=== PATIENT | male | born 1970 | race African-American/Black ===

== ENCOUNTER 2022-11-03 14:38 | Emergency (ER) | payer OTHER ==
[2022-11-03 14:52] VITALS: RESP 16; TEMP 97.5
--- NOTE | 2022-11-03 15:36 | ED ---
Psych HPI - General Source: patient, RN notes reviewed, old records reviewed Mode of arrival: ambulatory - History of Present Illness MD Complaint: suicidal ideation, feels depressed -: year(s) (2) Associated Psychiatric Symptoms: depression, suicidal ideation History of same: Yes Quality: constant, getting worse Improves With: none Context: recent drug abuse (crack yesterday, marijuana), significant life stressor Associated Symptoms: denies other symptoms Treatments Prior to Arrival: none <Jose Mattson - Last Filed: 11/03/22 15:33> <Heber Moura - Last Filed: 11/03/22 17:16> - General Chief Complaint: Psychiatric Symptoms Stated Complaint: DEPRESSION Time Seen by Provider: 11/03/22 15:09 - History of Present Illness Initial Comments: 52-year-old male presents ambulatory with complaints of worsening depression and suicidal ideation without a plan. Patient states he has a history of depression and was hospitalized inpatient in [place] a couple of years ago. At discharge he was placed on Seroquel but has not had that in quite some time. States it did help when he was on it. Does not have a primary care doctor. States that he is living down here by himself. Does have a history of crack cocaine abuse and used yesterday. Also uses marijuana. Denies any alcohol use. Patient denies any medical history. (Jose Mattson) - Related Data Allergies Allergy/AdvReac Type Severity Reaction Status Date / Time No Known Allergies Allergy Verified 11/03/22 14:47 Review of Systems ROS Other: All systems not noted in ROS Statement are negative. <Jose Mattson - Last Filed: 11/03/22 15:33> ROS Other: All systems not noted in ROS Statement are negative. <Heber Moura - Last Filed: 11/03/22 17:16> ROS Statement: Those systems with pertinent positive or pertinent negative responses have been documented in the HPI. Past Medical History Past Medical History: No Reported History History of Any Multi-Drug Resistant Organisms: None Reported Past Surgical History: Hernia Repair Past Psychological History: No Psychological Hx Reported Smoking Status: Current every day smoker Past Alcohol Use History: Heavy Past Drug Use History: Cocaine, Marijuana <Jose Mattson - Last Filed: 11/03/22 15:33> General Exam Limitations: no limitations General appearance: alert, in no apparent distress Head exam: Present: atraumatic, normocephalic Eye exam: Present: other (blind retinal detachment hx right eye). Absent: conjunctival injection Neck exam: Present: full ROM. Absent: tenderness, meningismus Respiratory exam: Present: normal lung sounds bilaterally. Absent: respiratory distress, accessory muscle use Cardiovascular Exam: Present: regular rate Extremities exam: Present: full ROM. Absent: tenderness, pedal edema Neurological exam: Present: alert, oriented X3 Psychiatric exam: Present: depressed, suicidal ideation (no plan) Skin exam: Present: warm, dry, normal color. Absent: cyanosis, diaphoretic, petechiae, pallor <Jose Mattson - Last Filed: 11/03/22 15:33> Course Vital Signs 11/03/22 14:48 Temperature 97.5 F L Pulse Rate 87 Respiratory 16 Rate Blood Pressure 132/79 O2 Sat by Pulse 98 Oximetry Medical Decision Making <Jose Mattson - Last Filed: 11/03/22 15:33> <Heber Moura - Last Filed: 11/03/22 17:16> - Medical Decision Making 52-year-old male presents ambulatory with complaints of worsening depression and suicidal ideation without a plan. Patient states he has a history of depression and was hospitalized inpatient in [place] a couple of years ago. At discharge he was placed on Seroquel but has not had that in quite some time. States it did help when he was on it. Does not have a primary care doctor. States that he is living down here by himself. Does have a history of crack cocaine abuse and used yesterday. Also uses marijuana. Denies any alcohol use. Patient denies any medical history. (Jose Mattson) Was pt. sent in by a medical professional or institution (, PA, DYE RANGE OPERATOR CLOTH, urgent care, hospital, or half-way...) When possible be specific @ -No Did you speak to anyone other than the patient for history (EMS, parent, family, police, friend...)? What history was obtained from this source @ -No Did you review nursing and triage notes (agree or disagree)? Why? @ -I reviewed and agree with nursing and triage notes Were old charts reviewed (outside hosp., previous admission, EMS record, old EKG, old radiological studies, urgent care reports/EKG's, half-way records)? Report findings @ -No old charts were reviewed Differential Diagnosis (chest pain, altered mental status, abdominal pain women, abdominal pain men, vaginal bleeding, weakness, fever, dyspnea, syncope, headache, dizziness, GI bleed, back pain, seizure, CVA, palpatations, mental health, musculoskeletal)? @Differential Mental Health Depression, anxiety, bipolar, psychosis, schizophrenia, borderline personality, situational depression, adjustment disorder, behavioral disorder, brain tumor, malingering, substance abuse, encephalopathy, medication reaction, dementia, hypothyroidism, degenerative neurologic disorder, lupus.... This is not meant to be all-inclusive list EKG interpreted by me (3pts min.). @ -As above X-rays interpreted by me (1pt min.). @ -None done CT interpreted by me (1pt min.). @ -None done U/S interpreted by me (1pt. min.). @ -None done What testing was considered but not performed or refused? (CT, X-rays, U/S, labs)? Why? @ -None What meds were considered but not given or refused? Why? @ -None Did you discuss the management of the patient with other professionals (professionals i.e. , PA, DYE RANGE OPERATOR CLOTH, lab, RT, psych nurse, manager social work, fire sprinkler service technician, teacher, bsa officer, case picker)? Give summary @ - evaluated by EPS, felt to be safe for discharge. Was smoking cessation discussed for >3mins.? @ -No Was critical care preformed (if so, how long)? @ -No Were there social determinants of health that impacted care today? How? (Homelessness, low income, unemployed, alcoholism, drug addiction, transportation, low edu. Level, literacy, decrease access to med. care, prison, rehab)? @ -No Was there de-escalation of care discussed even if they declined (Discuss DNR or withdrawal of care, Hospice)? DNR status @ -No What co-morbidities impacted this encounter? (DM, HTN, Smoking, COPD, CAD, Cancer, CVA, ARF, Chemo, Hep., AIDS, mental health diagnosis, sleep apnea, morbid obesity)? @ -None Was patient admitted / discharged? Hospital course, mention meds given and route, prescriptions, significant lab abnormalities, going to OR and other pertinent info. @ -Patient discharged with plan to follow up with [facility] on Saturday Undiagnosed new problem with uncertain prognosis? @ -No Drug Therapy requiring intensive monitoring for toxicity (Heparin, Nitro, Insulin, Cardizem)? @ -No Were any procedures done? @ -No Diagnosis/symptom? @ Depression, cocaine use Acute, or Chronic, or Acute on Chronic? @ Acute Uncomplicated (without systemic symptoms) or Complicated (systemic symptoms)? @ -default Side effects of treatment? @ -No Exacerbation, Progression, or Severe Exacerbation? @ -No Poses a threat to life or bodily function? How? (Chest pain, [place], [place], pneumonia, PE, COPD, DKA, ARF, appy, cholecystitis, CVA, Diverticulitis, Homicidal, Dionne cidal, threat to staff... and all critical care pts) @ -[Low risk at this time (Heber Moura) Disposition <Jose Mattson - Last Filed: 11/03/22 15:33> Is patient prescribed a controlled substance at d/c from ED?: No Time of Disposition: 17:16 <Heber Moura - Last Filed: 11/03/22 17:16> Clinical Impression: Depression, Cocaine abuse Disposition: HOME SELF-CARE Condition: Fair Instructions (If sedation given, give patient instructions): Depression (ED) Additional Instructions: Please follow up with [facility] on Saturday Referrals: None,Stated [Primary Care Provider] - 1-2 days
[2022-11-03 17:32] VITALS: BP 117/73; PULSE 79
== END 2022-11-03 18:00 | disposition home or self-care (01) ==
LOC: EC 14:38
DX: F32.A Depression, unspecified (principal); F14.10 Cocaine abuse, uncomplicated; F17.200 Nicotine dependence, unspecified, uncomplicated; F12.90 Cannabis use, unspecified, uncomplicated
CPT/HCPCS: 82075; 99284

== ENCOUNTER 2022-12-16 10:17 | Inpatient (IN) | payer MEDICAID, OTHER ==
--- NOTE | 2022-12-16 10:51 | ED ---
General Adult HPI - General Chief complaint: Psychiatric Symptoms Stated complaint: Mental Health Time Seen by Provider: 12/16/22 10:30 Source: patient, RN notes reviewed Mode of arrival: ambulatory Limitations: no limitations - History of Present Illness Initial comments: Patient is a pleasant 52-year-old male presenting to the emergency department with depression. Patient does have some chronic depression, worse recently. Patient has thoughts of self-harm, thoughts of cutting himself. Patient does have a history of previous cutting himself. No new physical complaints. Patient does have history of alcohol and cocaine use several days ago. No new physical complaints. Patient sometimes sees his uncle. - Related Data Allergies Allergy/AdvReac Type Severity Reaction Status Date / Time No Known Allergies Allergy Verified 12/16/22 10:29 Review of Systems ROS Statement: Those systems with pertinent positive or pertinent negative responses have been documented in the HPI. ROS Other: All systems not noted in ROS Statement are negative. Constitutional: Denies: fever Eyes: Denies: eye pain ENT: Denies: ear pain Respiratory: Denies: cough Cardiovascular: Denies: chest pain Endocrine: Denies: fatigue Gastrointestinal: Denies: abdominal pain Psychiatric: Reports: as per HPI, depression, suicidal thoughts Past Medical History Past Medical History: No Reported History History of Any Multi-Drug Resistant Organisms: None Reported Past Surgical History: Hernia Repair Past Psychological History: Depression Smoking Status: Current every day smoker Past Alcohol Use History: Heavy Past Drug Use History: Cocaine, Marijuana General Exam Limitations: no limitations General appearance: alert, in no apparent distress Head exam: Present: normocephalic Eye exam: Present: normal appearance Neck exam: Present: normal inspection Respiratory exam: Present: normal lung sounds bilaterally Cardiovascular Exam: Present: regular rate, normal rhythm GI/Abdominal exam: Present: soft. Absent: tenderness Extremities exam: Present: normal inspection Neurological exam: Present: alert Psychiatric exam: Present: depressed Skin exam: Present: normal color Course Vital Signs 12/16/22 10:26 Temperature 97.8 F Pulse Rate 69 Respiratory 16 Rate Blood Pressure 123/84 O2 Sat by Pulse 99 Oximetry Medical Decision Making - Medical Decision Making Was pt. sent in by a medical professional or institution (, PA, VETERINARIAN ASSISTANT, urgent care, hospital, or correction...) When possible be specific @ -No Did you speak to anyone other than the patient for history (EMS, parent, family, police, friend...)? What history was obtained from this source @ -No Did you review nursing and triage notes (agree or disagree)? Why? @ -I reviewed and agree with nursing and triage notes Were old charts reviewed (outside hosp., previous admission, EMS record, old EKG, old radiological studies, urgent care reports/EKG's, correction records)? Report findings @ -No old charts were reviewed Differential Diagnosis (chest pain, altered mental status, abdominal pain women, abdominal pain men, vaginal bleeding, weakness, fever, dyspnea, syncope, headache, dizziness, GI bleed, back pain, seizure, CVA, palpatations, mental health, musculoskeletal)? @ -Differential Mental Health Depression, anxiety, bipolar, psychosis, schizophrenia, borderline personality, situational depression, adjustment disorder, behavioral disorder, brain tumor, malingering, substance abuse, encephalopathy, medication reaction, dementia, hypothyroidism, degenerative neurologic disorder, lupus.... This is not meant to be all-inclusive list EKG interpreted by me (3pts min.). @ -As above X-rays interpreted by me (1pt min.). @ -None done CT interpreted by me (1pt min.). @ -None done U/S interpreted by me (1pt. min.). @ -None done What testing was considered but not performed or refused? (CT, X-rays, U/S, labs)? Why? @ -None What meds were considered but not given or refused? Why? @ -None Did you discuss the management of the patient with other professionals (professionals i.e. , PA, VETERINARIAN ASSISTANT, lab, RT, psych nurse, forensic social worker, technical sales support specialist, teacher, court officer, ed case manager)? Give summary @ -Case was discussed with psychiatric nurse Alice with plans for mental health admission. Was smoking cessation discussed for >3mins.? @ -No Was critical care preformed (if so, how long)? @ -No Were there social determinants of health that impacted care today? How? (Homelessness, low income, unemployed, alcoholism, drug addiction, transportation, low edu. Level, literacy, decrease access to med. care, halfway, rehab)? @ -No Was there de-escalation of care discussed even if they declined (Discuss DNR or withdrawal of care, Hospice)? DNR status @ -No What co-morbidities impacted this encounter? (DM, HTN, Smoking, COPD, CAD, [place] ncer, CVA, ARF, Chemo, Hep., AIDS, mental health diagnosis, sleep apnea, morbid obesity)? @ -None Was patient admitted / discharged? Hospital course, mention meds given and route, prescriptions, significant lab abnormalities, going to OR and other pertinent info. @ -Patient will be admitted to mental health unit. Patient was medically maranda red earlier. Undiagnosed new problem with uncertain prognosis? @ -No Drug Therapy requiring intensive monitoring for toxicity (Heparin, Nitro, I nsulin, Cardizem)? @ -No Were any procedures done? @ -No Diagnosis/symptom? @ -Depression with suicidal ideation Acute, or Chronic, or Acute on Chronic? @ -Acute Uncomplicated (without systemic symptoms) or Complicated (systemic symptoms)? @ -default Side effects of treatment? @ -No Exacerbation, Progression, or Severe Exacerbation? @ -No Poses a threat to life or bodily function? How? (Chest pain, [place], [place], pneumonia, PE, COPD, DKA, ARF, appy, cholecystitis, CVA, Diverticulitis, Homicidal, Suicidal, threat to staff... and all critical care pts) @ -No Disposition Clinical Impression: Depression, Suicidal ideation Disposition: TRANSFER TO PSYCH HOSP/UNIT Is patient prescribed a controlled substance at d/c from ED?: No Referrals: None,Stated [Primary Care Provider] - 1-2 days Time of Disposition: 16:08
[2022-12-16 16:14] LABS: Amphetamine Screen,Urine Not Detected (NotDetected); Barbiturate Screen,Urine Not Detected (NotDetected); Benzodiazepines Screen,Urine Not Detected (NotDetected); Cocaine Screen,Urine Detected (NotDetected); Methadone Screen, Urine Not Detected (NotDetected); Opiate Screen,Urine Detected (NotDetected); Oxycodone Screen, Urine Not Detected (NotDetected); Phencyclidine Screen,Urine Not Detected (NotDetected); Tricyclic Antidepressant,Urine Not Detected (NotDetected); Urn Cannabinoid Scrn Detected (NotDetected)
[2022-12-16 18:51] LABS: Appearance,Urine Clear (Clear); Bilirubin,Urine Negative (Negative); Blood,Urine Negative (Negative); Color,Urine Yellow; Glucose,Urine (UA) Negative (Negative); Ketones,Urine Negative (Negative); Leukocyte Esterase,Urine Negative (Negative); Nitrite,Urine Negative (Negative); Protein,Urine Trace (Negative); Specific Gravity,Urine 1.035 (1.001-1.035)
[2022-12-16 18:59] LABS: HCT 48.2 % (39.0-53.0); HGB 15.9 gm/dL (13.0-17.5); MCH 30.8 pg (25.0-35.0); MCHC 32.9 g/dL (31.0-37.0); MCV 93.5 fL (80.0-100.0); Mean Platelet Volume 7.8; Platelet Count 269 k/uL (150-450); RBC 5.16 m/uL (4.30-5.90); RDW 13.5 % (11.5-15.5); WBC 7.5 k/uL (3.8-10.6)
[2022-12-16 19:23] LABS: ALT 24 U/L (4-49); AST 21 U/L (17-59); African American GFR (CKD) >90 (>60 ml/min/1.73 sqM); Albumin 3.5 g/dL (3.5-5.0); Alkaline Phosphatase 67 U/L (38-126); Anion Gap 7 mmol/L; Blood Urea Nitrogen 17 mg/dL (9-20); Calcium 9.2 mg/dL (8.4-10.2); Carbon Dioxide 26 mmol/L (22-30); Chloride 105 mmol/L (98-107); Glucose 91 mg/dL (74-99); Non-African American GFR(CKD) >90 (>60 ml/min/1.73 sqM); Potassium 4.6 mmol/L (3.5-5.1); Sodium 138 mmol/L (137-145); Total Bilirubin 0.4 mg/dL (0.2-1.3); Total Protein 6.4 g/dL (6.3-8.2)
[2022-12-17] MEDS ORDERED: HALOPERIDOL LACTATE 5 MG/ML 1 ML VIAL IM PRN (21:40)
[2022-12-17] MEDS ORDERED: ACETAMINOPHEN TAB 325 MG TAB PO PRN (21:40)
[2022-12-17] MEDS ORDERED: MAG HYDROX/AL HYDROX/SIMETH 30 ML CUP PO PRN (21:40)
[2022-12-17] MEDS ORDERED: LORazepam 2 MG/ML INJ IM PRN (21:40)
[2022-12-17] MEDS ORDERED: IBUPROFEN 600 MG TAB PO PRN (21:40)
[2022-12-17] MEDS ORDERED: haloperidoL 5 MG TAB PO PRN (21:40)
[2022-12-17] MEDS ORDERED: MAGNESIUM HYDROXIDE 2,400 MG/30 ML CUP PO PRN (21:40)
[2022-12-17] MEDS ORDERED: LORazepam 1 MG TAB PO PRN (21:40)
[2022-12-18] MEDS: NICOTINE 14MG/24HR PATCH TRANSDERM SCH (08:30)
[2022-12-18] MEDS: SERTRALINE 50 MG TAB PO SCH (14:02)
--- NOTE | 2022-12-18 16:26 | P.HP ---
Psychiatric H&P - . H&P Date: 12/18/22 History & Physical: Allergies Allergy/AdvReac Type Severity Reaction Status Date / Time No Known Allergies Allergy Verified 12/16/22 17:05 Vital Signs Temp 97.6 F 12/17/22 21:40 Pulse 63 12/17/22 21:40 Resp 16 12/17/22 21:40 BP 117/74 12/17/22 21:40 Pulse Ox 98 12/17/22 21:40 FiO2 Intake & Output 12/17/22 12/18/22 12/18/22 18:59 06:59 18:59 Weight 64.5 kg 64.5 kg Laboratory Last Values WBC 7.5 k/uL (3.8-10.6) 12/16/22 18:51 RBC 5.16 m/uL (4.30-5.90) 12/16/22 18:51 Hgb 15.9 gm/dL (13.0-17.5) 12/16/22 18:51 Hct 48.2 % (39.0-53.0) 12/16/22 18:51 MCV 93.5 fL (80.0-100.0) 12/16/22 18:51 MCH 30.8 pg (25.0-35.0) 12/16/22 18:51 MCHC 32.9 g/dL (31.0-37.0) 12/16/22 18:51 RDW 13.5 % (11.5-15.5) 12/16/22 18:51 Plt Count 269 k/uL (150-450) 12/16/22 18:51 MPV 7.8 12/16/22 18:51 Sodium 138 mmol/L (137-145) 12/16/22 18:51 Potassium 4.6 mmol/L (3.5-5.1) 12/16/22 18:51 Chloride 105 mmol/L (98-107) 12/16/22 18:51 Carbon Dioxide 26 mmol/L (22-30) 12/16/22 18:51 Anion Gap 7 mmol/L 12/16/22 18:51 BUN 17 mg/dL (9-20) 12/16/22 18:51 Creatinine 0.87 mg/dL (0.66-1.25) 12/16/22 18:51 Est GFR (CKD-EPI)AfAm >90 (>60 ml/min/1.73 sqM) 12/16/22 18:51 Est GFR (CKD-EPI)NonAf >90 (>60 ml/min/1.73 sqM) 12/16/22 18:51 Glucose 91 mg/dL (74-99) 12/16/22 18:51 Calcium 9.2 mg/dL (8.4-10.2) 12/16/22 18:51 Total Bilirubin 0.4 mg/dL (0.2-1.3) 12/16/22 18:51 AST 21 U/L (17-59) 12/16/22 18:51 ALT 24 U/L (4-49) 12/16/22 18:51 Alkaline Phosphatase 67 U/L (38-126) 12/16/22 18:51 Total Protein 6.4 g/dL (6.3-8.2) 12/16/22 18:51 Albumin 3.5 g/dL (3.5-5.0) 12/16/22 18:51 Urine Color Yellow 12/16/22 16:24 Urine Appearance Clear (Clear) 12/16/22 16:24 Urine pH 7.0 (5.0-8.0) 12/16/22 16:24 Ur Specific [place] 1.035 (1.001-1.035) 12/16/22 16:24 Urine Protein Trace (Negative) H 12/16/22 16:24 Urine Glucose (UA) Negative (Negative) 12/16/22 16:24 Urine Ketones Negative (Negative) 12/16/22 16:24 Urine Blood Negative (Negative) 12/16/22 16:24 Urine Nitrite Negative (Negative) 12/16/22 16:24 Urine Bilirubin Negative (Negative) 12/16/22 16:24 Urine Urobilinogen 2.0 mg/dL (<2.0) 12/16/22 16:24 Ur Leukocyte Esterase Negative (Negative) 12/16/22 16:24 Urine Opiates Screen Detected (NotDetected) H 12/16/22 13:57 Ur Oxycodone Screen Not Detected (NotDetected) 12/16/22 13:57 Urine Methadone Screen Not Detected (NotDetected) 12/16/22 13:57 Ur Propoxyphene Screen Not Detected (NotDetected) 12/16/22 13:57 Ur Barbiturates Screen Not Detected (NotDetected) 12/16/22 13:57 U Tricyclic Antidepress Not Detected (NotDetected) 12/16/22 13:57 Ur Phencyclidine Scrn Not Detected (NotDetected) 12/16/22 13:57 Ur Amphetamines Screen Not Detected (NotDetected) 12/16/22 13:57 U Methamphetamines Scrn Not Detected (NotDetected) 12/16/22 13:57 U Benzodiazepines Scrn Not Detected (NotDetected) 12/16/22 13:57 Urine Cocaine Screen Detected (NotDetected) H 12/16/22 13:57 U Marijuana (THC) Screen Detected (NotDetected) H 12/16/22 13:57 Coronavirus (PCR) Not Detected (Not Detectd) 12/16/22 19:48 12/18/22 13:34 IDENTIFYING DATA: Patient is a 52 yo male, currently is renting a room, is single, has no kids. works at a [employer] HPI: Patient presented to the hospital on 12/16 for depression and suicidal ideations. patient apparently was endorsing a plan to cut himself. his uds was positive for opiates, cocaine, thc. patient was seen today and agreeable to speak in the office. he was admitted last night voluntarily to [facility]. patient had a depressed affet, poor eye conact, spoke softly. he states that he has been feeling overwhelmed, depressed "about life". 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 states that he is unsure about his job at this time whether or not they are going to let him go. he endorsed anxiety, states that he is still having SI, no current plan. claims that he has been using a significant amount of crack/cocaine lately, claims his sleep is poor around 4-5 hrs. appetite is on/off. denies any HI. he states that he is hearing voices "sound slike a crowd of people but I dont know what theyre saying". he denies any visual hallucinations. Patient denies any flight of ideas racing thoughts and increased in goal directed behavior. Patient admits to using crack cocaine, cannabis lately and also cigaettes daily. PAST PSYCHIATRIC HISTORY: Patient states that he has a hx of depression self harm and polysubtance abuse. [Patient denies being on any psychiatric medications.] [Patient claims his last hospitalization was in [place] several years ago.] [Patient denies any psychiatric outpatient follow-up.] he claims that he cut himself 5 years ago in a suicide attempt. Past Medical History: No Reported History History of Any Multi-Drug Resistant Organisms: None Reported Past Surgical History: Hernia Repair Past Psychological History: Depression Smoking Status: Current every day smoker Past Alcohol Use History: Heavy Past Drug Use History: Cocaine, Marijuana ALLERGIES: as per EMR CHEMICAL DEPENDENCY HISTORY: as per HPI FAMILY PSYCHIATRIC/SUBSTANCE USE HISTORY: claims his uncle committed suicide. SOCIAL HISTORY: Patient was born and raised in [place] and now lives in [place]. claims he rents a room, single, no kids, works at a factory. he states that he finished high school. denies any legal hx. MENTAL STATUS EXAM: General Appearance: Patient appears to be thin, shaved head, blading, stated age is alert, [directable, and attempts to cooperate]. poor eye contact. Patient appears to have [poor] hygiene and grooming. Behavior: Patient is seated without any agitated behavior. depressed affect. Speech: Patient's speech is [fluent and nonpressured.] soft tone of voice, vague Mood/Affect: Patient reports their mood is [depressed] and anxious, affect is congruent and constricted. Suicidality/Homicidality: Patient denies having any homicidal ideation intent or plan. [Denies any suicidal ideations intent or plan] Perceptions: Patient denies any visual hallucinations [and denies any auditory hallucinations] Though content/process: [There is no evidence of any delusional thought content and thought process is linear and goal-directed.] focused on his stressors. Memory and concentration: AOX3, grossly intact for the purposes of this session. Can spell "WORLD" backwards Judgment and insight: [poor] STRENGTHS/WEAKNESSES: strength is that patient is [resilient]. Weakness is that patient [has poor judgment and is impulsive] INTELLECT: [average] IMPRESSIONS: Major depressive disorder with psychotic features cocaine abuse cannabis use disorder nicotine dependence PLAN: -Patient is admitted under [voluntary] status to [facility] for stabilization of psychiatric symptoms and safety. Patient has signed [adult voluntary form and] [medication consent] and is placed in patient's chart. -Medications : zoloft 50 mg daily for mood/anxiety, seroquel 25 mg qhs for sleep/psychosis. -Ativan [and Haldol] PRN for agitation/aggression [-Patient was counselled on substance abuse and desired to cut back on use] -Patient was informed of the risks, benefits and side effects of the medication and patient verbally consented to taking the medications. Patient signed med consent form and was placed in chart. -Internal Medicine consult to perform medical evaluation and physical. -NRT - [nicotine patch] -SW on board for discharge planning. Encourage patient to participate in groups to work on coping skills. patient states that he may be interested in rehab. 12/18/22 16:15
[2022-12-18] MEDS: QUEtiapine 25 MG TAB PO SCH (20:39)
--- NOTE | 2022-12-18 22:17 | P.CONS ---
History of Present Illness - Reason for Consult Consult date: 12/18/22 - History of Present Illness Patient is a 52-year-old male with a PMH of polysubstance abuse, depression, and tobacco abuse who presented to the emergency room with complaints of depression and suicidal ideation. The patient was admitted to the mental health unit where he was seen and evaluated. 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 He expressed multiple thoughts of harming himself. He reports smoking less than one pack of cigarettes daily. Also reports social alcohol use. He denied any physical complaints at the time of interview. Denied experiencing chest discomfort, shortness of breath, fever, chills, cough, nausea, vomiting, abdominal pain, diarrhea. Review of systems: Pertinent positives and negatives as discussed in HPI, a complete review of systems was performed and all other systems are negative. Physical examination: General: non toxic, no distress, appears at stated age, normal weight Derm: no unusual rashes/lesions, no unusual ecchymoses, warm, dry Head: atraumatic, normocephalic, symmetric Eyes: EOMI, no lid lag, anicteric sclera ENT: Nose and ears atraumatic, no thrush, no pharyngeal erythema Neck: trachea midline, supple Mouth: no lip lesion, mucus membranes moist Cardiovascular: S1S2 reg, no murmur, no edema Lungs: CTA bilateral, no rhonchi, no rales , no accessory muscle use Abdominal: soft, nontender to palpation, no guarding Ext: no gross muscle atrophy, no contractures, Neuro: No gross focal neuro deficits noted Psych: Alert, oriented, appropriate affect Assessment: Polysubstance abuse including crack cocaine and marijuana Tobacco abuse Depression and suicidal ideation Imaging: None performed Data Review: Reviewed with WBC count 7.5, hemoglobin 15.9, sodium 138, glucose 91, urine toxicology positive for cocaine, marijuana, and opiates. Plan: Strongly advised on importance of cessation from substance use Defer management of depression and suicidal ideation to the primary psychiatry service Thank you for allowing us to participate in the care of this patient. We will follow peripherally. Do not hesitate to contact us with questions. Someone can be reached from the [facility] at all hours of the day at [phone]. Past Medical History Past Medical History: Eye Disorder Additional Past Medical History / Comment(s): Right eye detached retina with blindness. History of Any Multi-Drug Resistant Organisms: None Reported Past Surgical History: Hernia Repair Past Psychological History: Depression Smoking Status: Current every day smoker Past Alcohol Use History: Heavy Past Drug Use History: Cocaine, Marijuana Medications and Allergies Home Medications Medication Instructions Recorded Confirmed Type No Known Home Medications 12/16/22 12/16/22 History Allergies Allergy/AdvReac Type Severity Reaction Status Date / Time No Known Allergies Allergy Verified 12/16/22 17:05 Physical Exam Vitals: Intake and Output 12/18/22 12/18/22 12/18/22 06:59 14:59 22:59 Other: Weight 64.5 kg Results CBC & Chem 7: 12/16/22 18:51 12/16/22 18:51
[2022-12-19] MEDS: NICOTINE 14MG/24HR PATCH TRANSDERM SCH (08:33)
[2022-12-19] MEDS: SERTRALINE 50 MG TAB PO SCH (08:33)
--- NOTE | 2022-12-19 11:13 | P.PN ---
Subjective Progress Note Date: 12/19/22 Principal diagnosis: IMPRESSIONS: Adjustment disorder with depressed mood Major depressive disorder with psychotic features cocaine abuse cannabis use disorder nicotine dependence Patient Name: Abhijeet Sharpe Date of : 1970 Patient Status: Inpatient Attending Provider: Miguel Ellsworth Date: 12/19/22 IDENTIFYING DATA: Patient is a 52 yo male, currently is renting a room, is single, has no kids. States he was working at the [employer] and is currently homeless HPI: Patient presented to the hospital on 12/16 for depression and suicidal ideations. Patient admits to having issues with alcohol but did not endorse any other drugs patient apparently was endorsing a plan to cut himself. his uds was positive for opiates, cocaine, thc. But patient denied using any other drugs . patient had a depressed affet, poor eye conact, spoke softly. he states that he has been feeling overwhelmed, depressed "about life". States that he feels lonely, misses his family, states that he is still having SI, no current plan. Chart reveals that he has been using a significant amount of crack/cocaine lately, claims his sleep is poor around 4-5 hrs. appetite is on/off. denies any HI. he denies any visual hallucinations. Patient denies any flight of ideas racing thoughts and increased in goal directed behavior. Patient has admitted to the previous doctor about using crack cocaine, cannabis lately and also cigaettes daily. MENTAL STATUS EXAM: General Appearance: Patient appears to be thin, shaved head, , stated age is alert, [directable, and attempts to cooperate]. poor eye co ntact. Patient appears to have [poor] hygiene and grooming. Behavior: Patient is seated without any agitated behavior. depressed affect. Speech: Patient's speech is [fluent and nonpressured.] soft tone of voice, vague Mood/Affect: Patient reports their mood is [depressed] and anxious, affect is co ngruent and constricted. Suicidality/Homicidality: Patient denies having any homicidal ideation intent or plan. [Denies any suicidal ideations intent or plan] Perceptions: Patient denies any visual hallucinations [and denies any auditory hallucinations] Though content/process: [There is no evidence of any delusional thought content and thought process is linear and goal-directed.] focused on his stressors. Memory and concentration: AOX3, grossly intact for the purposes of this session. Can spell "WORLD" backwards Judgment and insight: [poor] STRENGTHS/WEAKNESSES: strength is that patient is [resilient]. Weakness is that patient [has poor judgment and is impulsive] INTELLECT: [average] IMPRESSIONS: Major depressive disorder with psychotic features cocaine abuse cannabis use disorder nicotine dependence PLAN: Agree with the current treatment plan: -Patient is admitted under [voluntary] status to MHU for stabilization of psychiatric symptoms and safety. Patient has signed [adult voluntary form and] [medication consent] and is placed in patient's chart. -Medications : zoloft 50 mg daily for mood/anxiety, seroquel 25 mg qhs for sleep/psychosis. -Ativan [and Haldol] PRN for agitation/aggression [-Patient was counselled on substance abuse and desired to cut back on use] -Patient was informed of the risks, benefits and side effects of the medication and patient verbally consented to taking the medications. Patient signed med consent form and was placed in chart. -Internal Medicine consult to perform medical evaluation and physical. -NRT - [nicotine patch] -SW on board for discharge planning. Encourage patient to participate in groups to work on coping skills. patient states that he may be interested in rehab. Tod Benson Morrison M.D. Objective - Vital Signs Vital signs: Vital Signs Temp 98.1 F 12/19/22 05:14 Pulse 72 12/19/22 05:14 Resp 16 12/19/22 05:14 BP 149/86 12/19/22 05:14 Pulse Ox 98 12/19/22 05:14 FiO2 Intake & Output 12/18/22 12/19/22 12/19/22 18:59 06:59 18:59 Weight 64.5 kg - Labs CBC & Chem 7: 12/16/22 18:51 12/16/22 18:51
[2022-12-19] MEDS: QUEtiapine 25 MG TAB PO SCH (21:28)
[2022-12-20] MEDS: SERTRALINE 50 MG TAB PO SCH (08:32)
[2022-12-20] MEDS: NICOTINE 14MG/24HR PATCH TRANSDERM SCH (08:33)
--- NOTE | 2022-12-20 11:09 | P.PN ---
Subjective Progress Note Date: 12/20/22 Principal diagnosis: IMPRESSIONS: Adjustment disorder with depressed mood Major depressive disorder with psychotic features cocaine abuse cannabis use disorder nicotine dependence Patient Name: Abhijeet Sharpe Date of : 1970 Patient Status: Inpatient Attending Provider: Miguel Ellsworth Date: 12/20/22 Subjective data: Patient states that he is feeling about the same He states that he feels depressed and a motivated Patient's speech remains impoverished with monosyllabic responses Affect remains flat to downcast he denies any visual hallucinations. Patient denies any flight of ideas racing thoughts and increased in goal directed behavior. Patient has admitted to the previous doctor about using crack cocaine, cannabis lately and also cigaettes daily. MENTAL STATUS EXAM: General Appearance: Patient appears to be thin, shaved head, , stated age is alert, [directable, and attempts to cooperate]. poor eye contact. Patient appears to have [poor] hygiene and grooming. Behavior: Patient is seated without any agitated behavior. depressed affect. Speech: Patient's speech is [fluent and nonpressured.] soft tone of voice, vague Mood/Affect: Patient reports their mood is [depressed] and anxious, affect is congruent and constricted. Suicidality/Homicidality: Patient denies having any homicidal ideation intent or plan. [Denies any suicidal ideations intent or plan] Perceptions: Patient denies any visual hallucinations [and denies any auditory hallucinations] Though content/process: [There is no evidence of any delusional thought content and thought process is linear and goal-directed.] focused on his stressors. Memory and concentration: AOX3, grossly intact for the purposes of this session. Can spell "WORLD" backwards Judgment and insight: [poor] STRENGTHS/WEAKNESSES: strength is that patient is [resilient]. Weakness is that patient [has poor judgment and is impulsive] INTELLECT: [average] IMPRESSIONS: Major depressive disorder with psychotic features cocaine abuse cannabis use disorder nicotine dependence PLAN: Agree with the current treatment plan: -Patient is admitted under [voluntary] status to MHU for stabilization of psychiatric symptoms and safety. Patient has signed [adult voluntary form and] [medication consent] and is placed in patient's chart. -Medications : zoloft 50 mg daily for mood/anxiety, seroquel 25 mg qhs for sleep/psychosis. -Ativan [and Haldol] PRN for agitation/aggression [-Patient was counselled on substance abuse and desired to cut back on use] -Patient was informed of the risks, benefits and side effects of the medication and patient verbally consented to taking the medications. Patient signed med consent form and was placed in chart. -Internal Medicine consult to perform medical evaluation and physical. -NRT - [nicotine patch] -SW on board for discharge planning. Encourage patient to participate in groups to work on coping skills. patient states that he may be interested in rehab. Discussed with the nursing staff regarding possible correction home/substance use program Benson Morrison M.D. Objective - Vital Signs Vital signs: Vital Signs Temp 98.1 F 12/19/22 05:14 Pulse 72 12/20/22 06:45 Resp 16 12/20/22 06:45 BP 121/68 12/20/22 06:45 Pulse Ox 98 12/19/22 05:14 FiO2 - Labs CBC & Chem 7: 12/16/22 18:51 12/16/22 18:51
[2022-12-20] MEDS: QUEtiapine 25 MG TAB PO SCH (20:24)
[2022-12-21] MEDS: SERTRALINE 50 MG TAB PO SCH (08:50)
[2022-12-21] MEDS: NICOTINE 14MG/24HR PATCH TRANSDERM SCH (08:50)
--- NOTE | 2022-12-21 10:10 | P.PN ---
Subjective Progress Note Date: 12/21/22 Principal diagnosis: IMPRESSIONS: Adjustment disorder with depressed mood Major depressive disorder with psychotic features cocaine abuse cannabis use disorder nicotine dependence Patient Name: Abhijeet Sharpe Date of : 1970 Patient Status: Inpatient Attending Provider: Miguel Ellsworth Date: 12/21/22 Subjective data: Patient states that he is feeling about the same He states that he feels depressed and a motivated Patient's speech remains impoverished with monosyllabic responses She did not request that he needs to get to the [facility] [facility] to take care of some financial issues he denies that he is requesting for discharge The requested for admission to [place] substance use program He admits to using drugs quite heavily Affect remains flat to downcast he denies any visual hallucinations. Patient denies any flight of ideas racing thoughts and increased in goal directed behavior. Patient has admitted to the previous doctor about using crack cocaine, cannabis lately and also cigaettes daily. MENTAL STATUS EXAM: General Appearance: Patient appears to be thin, shaved head, , stated age is alert, [directable, and attempts to cooperate]. poor eye contact. Patient appears to have [poor] hygiene and grooming. Behavior: Patient is seated without any agitated behavior. depressed affect. Speech: Patient's speech is [fluent and nonpressured.] soft tone of voice, vague Mood/Affect: Patient reports their mood is [depressed] and anxious, affect is congruent and constricted. Suicidality/Homicidality: Patient denies having any homicidal ideation intent or plan. [Denies any suicidal ideations intent or plan] Perceptions: Patient denies any visual hallucinations [and denies any auditory hallucinations] Though content/process: [There is no evidence of any delusional thought content and thought process is linear and goal-directed.] focused on his stressors. Memory and concentration: AOX3, grossly intact for the purposes of this session. Can spell "WORLD" backwards Judgment and insight: [poor] STRENGTHS/WEAKNESSES: strength is that patient is [resilient]. Weakness is that patient [has poor judgment and is impulsive] INTELLECT: [average] IMPRESSIONS: Major depressive disorder with psychotic features cocaine abuse cannabis use disorder nicotine dependence PLAN: Agree with the current treatment plan: We discussed with the social welfare research worker regarding his current request -Patient is admitted under [voluntary] status to MHU for stabilization of psychiatric symptoms and safety. Patient has signed [adult voluntary form and] [medication consent] and is placed in patient's chart. -Medications : zoloft 50 mg daily for mood/anxiety, seroquel 25 mg qhs for sleep/psychosis. -Ativan [and Haldol] PRN for agitation/aggression [-Patient was counselled on substance abuse and desired to cut back on use] -Patient was informed of the risks, benefits and side effects of the medication and patient verbally consented to taking the medications. Patient signed med consent form and was placed in chart. -Internal Medicine consult to perform medical evaluation and physical. -NRT - [nicotine patch] -SW on board for discharge planning. Encourage patient to participate in groups to work on coping skills. patient states that he may be interested in rehab. Discussed with the nursing staff regarding possible half-way home/substance use program Benson Morrison M.D. Objective - Vital Signs Vital signs: Vital Signs Temp 97.7 F 12/21/22 05:37 Pulse 71 12/21/22 05:37 Resp 16 12/20/22 06:45 BP 118/68 12/21/22 05:37 Pulse Ox 98 12/19/22 05:14 FiO2 - Labs CBC & Chem 7: 12/16/22 18:51 12/16/22 18:51
[2022-12-21] MEDS: QUEtiapine 25 MG TAB PO SCH (21:24)
[2022-12-22] MEDS: SERTRALINE 50 MG TAB PO SCH (09:06)
[2022-12-22] MEDS: NICOTINE 14MG/24HR PATCH TRANSDERM SCH (09:07)
--- NOTE | 2022-12-22 10:27 | P.PN ---
Subjective Progress Note Date: 12/22/22 Principal diagnosis: IMPRESSIONS: Adjustment disorder with depressed mood Major depressive disorder with psychotic features cocaine abuse cannabis use disorder nicotine dependence Patient Name: Abhijeet Sharpe Date of : 1970 Patient Status: Inpatient Attending Provider: Miguel Ellsworth Date: 12/22/22 Subjective data: The patient reports that he will have to go to the [address] [place] [address] ready to be discharged Assessment and was similar to the one from the other day Patient states that he is feeling about the same He states that he feels depressed and amotivated Patient's speech remains impoverished with monosyllabic responses Patient again reiterated for admission to [place] substance use program He admits to using drugs quite heavily Affect remains flat to downcast he denies any visual hallucinations. Patient denies any flight of ideas racing thoughts and increased in goal direc tiana behavior. Patient has admitted to using crack cocaine, cannabis cigaettes daily. MENTAL STATUS EXAM: General Appearance: Patient appears to be thin, shaved head, , stated age is alert, [directable, and attempts to cooperate]. poor eye contact. Patient appears to have [poor] hygiene and grooming. Behavior: Patient is seated without any agitated behavior. depressed affect. Speech: Patient's speech is [fluent and nonpressured.] soft tone of voice, vague Mood/Affect: Patient reports their mood is [depressed] and anxious, affect is congruent and constricted. Suicidality/Homicidality: Patient denies having any homicidal ideation intent or plan. [Denies any suicidal ideations intent or plan] Perceptions: Patient denies any visual hallucinations [and denies any auditory hallucinations] Though content/process: [There is no evidence of any delusional thought content and thought process is linear and goal-directed.] focused on his stressors. Memory and concentration: AOX3, grossly intact for the purposes of this session. Can spell "WORLD" backwards Judgment and insight: Improved slightly STRENGTHS/WEAKNESSES: strength is that patient is [resilient]. Weakness is that patient [has poor judgment and is impulsive] INTELLECT: [average] IMPRESSIONS: Major depressive disorder with psychotic features cocaine abuse cannabis use disorder nicotine dependence PLAN: Agree with the current treatment plan: We discussed with the director social regarding his current request -Patient is admitted under [voluntary] status to MHU for stabilization of psychiatric symptoms and safety. Patient has signed [adult voluntary form and] [medication consent] and is placed in patient's chart. -Medications : zoloft 50 mg daily for mood/anxiety, seroquel 25 mg qhs for sleep/psychosis. -Ativan [and Haldol] PRN for agitation/aggression [-Patient was counselled on substance abuse and desired to cut back on use] -Patient was informed of the risks, benefits and side effects of the medication and patient verbally consented to taking the medications. Patient signed med consent form and was placed in chart. -Internal Medicine consult to perform medical evaluation and physical. -NRT - [nicotine patch] -SW on board for discharge planning. Encourage patient to participate in groups to work on coping skills. patient states that he may be interested in rehab. Discussed with the nursing staff regarding possible group home home/substance use program Benson Morrison M.D. Objective - Vital Signs Vital signs: Vital Signs Temp 97.7 F 12/21/22 05:37 Pulse 79 12/22/22 06:57 Resp 18 12/22/22 06:57 BP 156/91 12/22/22 06:57 Pulse Ox 98 12/19/22 05:14 FiO2 - Labs CBC & Chem 7: 12/16/22 18:51 12/16/22 18:51
[2022-12-22] MEDS: QUEtiapine 25 MG TAB PO SCH (21:21)
--- NOTE | 2022-12-23 07:57 | P.PN ---
Subjective Progress Note Date: 12/23/22 Principal diagnosis: IMPRESSIONS: Adjustment disorder with depressed mood Major depressive disorder with psychotic features cocaine abuse cannabis use disorder nicotine dependence Patient Name: Abhijeet Sharpe Date of : 1970 Patient Status: Inpatient Attending Provider: Miguel Ellsworth Date: 12/23/22 Subjective data: The patient was seen for a follow-up Patient reports that he continues to have difficulty with sleep Patient otherwise states that he feels somewhat downcast and is taking 1 day at a time He states that he is looking forward to going to the treatment program Patient states that he wants to take out some money from his [employer] [facility] but we will have to wait until he is being discharged Patient again reiterated for admission to [facility] substance use program He admits to using drugs quite heavily Affect remains flat to downcast he denies any visual hallucinations. Patient denies any flight of ideas racing thoughts and increased in goal directed behavior. MENTAL STATUS EXAM: General Appearance: Patient appears to be thin, shaved head, , stated age is alert, [directable, and attempts to cooperate]. poor eye contact. Patient appears to have [poor] hygiene and grooming. Behavior: Patient is seated without any agitated behavior. depressed affect. Speech: Patient's speech is [fluent and nonpressured.] soft tone of voice, vague Mood/Affect: Patient reports their mood is [depressed] and anxious, affect is congruent and constricted. Suicidality/Homicidality: Patient denies having any homicidal ideation intent or plan. [Denies any suicidal ideations intent or plan] Perceptions: Patient denies any visual hallucinations [and denies any auditory hallucinations] Though content/process: [There is no evidence of any delusional thought content and thought process is linear and goal-directed.] focused on his stressors. Memory and concentration: AOX3, grossly intact for the purposes of this session. Can spell "WORLD" backwards Judgment and insight: Improved STRENGTHS/WEAKNESSES: strength is that patient is [resilient]. Weakness is that patient [has poor judgment and is impulsive] INTELLECT: [average] IMPRESSIONS: Major depressive disorder with psychotic features cocaine abuse cannabis use disorder nicotine dependence Chronic insomnia PLAN: Agree with the current treatment plan: We discussed with the geriatric social work professor regarding his current request -Patient is admitted under [voluntary] status to MHU for stabilization of psychiatric symptoms and safety. Patient has signed [adult voluntary form and] [medication consent] and is placed in patient's chart. -Medications : zoloft 50 mg daily for mood/anxiety, increase Seroquel to 50 mg mg qhs for sleep/psychosis. -Ativan [and Haldol] PRN for agitation/aggression [-Patient was counselled on substance abuse and desired to cut back on use] -Patient was informed of the risks, benefits and side effects of the medication and patient verbally consented to taking the medications. Patient signed med consent form and was placed in chart. -Internal Medicine consult to perform medical evaluation and physical. -NRT - [nicotine patch] -SW on board for discharge planning. Encourage patient to participate in groups to work on coping skills. patient states that he may be interested in rehab. Discussed with the nursing staff regarding possible assisted home/substance use program Benson Morrison M.D. Objective - Vital Signs Vital signs: Vital Signs Temp 97.7 F 12/21/22 05:37 Pulse 72 12/23/22 06:31 Resp 18 12/23/22 06:31 BP 122/61 12/23/22 06:31 Pulse Ox 98 12/19/22 05:14 FiO2 - Labs CBC & Chem 7: 12/16/22 18:51 12/16/22 18:51
[2022-12-23] MEDS: SERTRALINE 100 MG TAB PO SCH (08:30)
[2022-12-23] MEDS: NICOTINE 14MG/24HR PATCH TRANSDERM SCH (08:32)
[2022-12-23] MEDS: QUEtiapine 50 MG TAB PO SCH (21:55)
[2022-12-24] MEDS: NICOTINE 14MG/24HR PATCH TRANSDERM SCH (08:39)
[2022-12-24] MEDS: SERTRALINE 100 MG TAB PO SCH (08:43)
--- NOTE | 2022-12-24 11:57 | P.PN ---
Progress Note - Text Progress Note Date: 12/24/22 Interval history: Patient was seen today in the [facility] and was agreeable to speak to securities underwriter in the office. Patient was fairly concrete today, mildly improving eye contact. He states that he is doing a bit better with regards his mood. States that his anxiety has been improving as well. He is denying any side effects from the medications. States that he was sleeping about 5 hours last night. He was agreeable to try melatonin at nighttime as well as that is helped in the past. States that he is trying to go to some groups and interact with others. He asked more about rehab however does not have an intake data at this time. He also claimed that he is homeless and does not have a place to go. At this time is denying any suicidal or homicidal ideations intent or plan. Denying any auditory or visual hallucinations. Mental status examination: General Appearance: Patient appears to be thin, shaved head, blading, stated age is alert, directable, and attempts to cooperate. improving eye contact. improving hygiene and grooming. Behavior: Patient is seated without any agitated behavior. More cooperative today Speech: Patient's speech is fluent and nonpressured. soft tone of voice, improving mildly Mood/Affect: Patient reports their mood is improving mildly, affect is congruent and constricted. Suicidality/Homicidality: Patient denies having any homicidal ideation intent or plan. Denies any suicidal ideations intent or plan Perceptions: Patient denies any visual hallucinations and denies any auditory hallucinations Though content/process: There is no evidence of any delusional thought content and thought process is linear and goal-directed. Fairly concrete Memory and concentration: AOX3, grossly intact for the purposes of this session Judgment and insight: Improving mildly IMPRESSIONS: Major depressive disorder with psychotic features cocaine abuse cannabis use disorder nicotine dependence PLAN: -Patient is admitted under voluntary status to MHU for stabilization of psychiatric symptoms and safety. Patient has signed adult voluntary form and medication consent and is placed in patient's chart. -Medications : continue with zoloft 100 mg daily for mood/anxiety, continue with seroquel 50 mg qhs for sleep/psychosis. melatonin 5 mg qhs for sleep -Ativan and Haldol PRN for agitation/aggression -NRT - nicotine patch -SW on board for discharge planning. Encourage patient to participate in groups to work on coping skills. Currently awaiting intake dated at [facility]. Patient states that he does not have a place to go until rehab.
[2022-12-24 12:17] VITALS: BMI 24.1
[2022-12-24] MEDS ORDERED: MELATONIN 5 MG TABLET PO SCH (21:00)
[2022-12-24] MEDS: QUEtiapine 50 MG TAB PO SCH (22:24)
[2022-12-25] MEDS: SERTRALINE 100 MG TAB PO SCH (08:47)
[2022-12-25] MEDS: NICOTINE 14MG/24HR PATCH TRANSDERM SCH (08:48)
--- NOTE | 2022-12-25 12:13 | P.PN ---
Progress Note - Text Progress Note Date: 12/25/22 Interval history: [facility] and was agreeable to speak to information writer in the office. Patient was fairly concrete today, mildly improving eye contact today. He claims that he is doing a bit better with regards to his mood and anxiety. He states that yesterday than him another patient engaged in intercourse. He states that "it was something mutual between us". He claims that it was consensual between them and states that it was a bad idea. He acknowledges that he should not of done at. We spoke about the risks of that on the unit and he agrees. He claims that he is working with [employer] for a ride to [facility] from the hospital. He claimed that he is still motivated to do rehab and the plan will be morning when he will go. He claims that he is going to groups and participating. States that he slept about 5 or 6 hours last night. At this time is denying any suicidal or homicidal ideations intent or plan. Denying any auditory or visual hallucinations. Mental status examination: General Appearance: Patient appears to be thin, shaved head, blading, stated age is alert, directable, and attempts to cooperate. improving eye contact. improving hygiene and grooming. Behavior: Patient is seated without any agitated behavior. Somewhat cooperative today Speech: Patient's speech is fluent and nonpressured. soft tone of voice, improving mildly Mood/Affect: Patient reports their mood is improving mildly, affect is congruent and constricted. Suicidality/Homicidality: Patient denies having any homicidal ideation intent or plan. Denies any suicidal ideations intent or plan Perceptions: Patient denies any visual hallucinations and denies any auditory hallucinations Though content/process: There is no evidence of any delusional thought content and thought process is linear and goal-directed. Fairly concrete Memory and concentration: AOX3, grossly intact for the purposes of this session Judgment and insight: Improving mildly IMPRESSIONS: Major depressive disorder with psychotic features cocaine abuse cannabis use disorder nicotine dependence PLAN: -Patient is admitted under voluntary status to MHU for stabilization of psychiatric symptoms and safety. Patient has signed adult voluntary form and medication consent and is placed in patient's chart. -Medications : continue with zoloft 100 mg daily for mood/anxiety, continue with seroquel 50 mg qhs for sleep/psychosis. Increased melatonin 10 mg qhs for sleep -Ativan and Haldol PRN for agitation/aggression -NRT - nicotine patch - on board for discharge planning. Encourage patient to participate in groups to work on coping skills. Patient has an intake appointment at [facility] on . Due to patient being homeless and high risk of relapse, will await direct transfer from the hospital to rehab. d/c /
[2022-12-25] MEDS: QUEtiapine 50 MG TAB PO SCH (21:51)
[2022-12-25] MEDS: MELATONIN 5 MG TABLET PO SCH (21:51)
[2022-12-26 07:20] VITALS: RESP 16
[2022-12-26] MEDS: NICOTINE 14MG/24HR PATCH TRANSDERM SCH (09:13)
[2022-12-26] MEDS: SERTRALINE 100 MG TAB PO SCH (09:13)
--- NOTE | 2022-12-26 10:29 | P.PN ---
Progress Note - Text Progress Note Date: 12/26/22 Interval history: Patient was seen today in the [facility] and was agreeable to speak to music writer in the office. Patient was fairly concrete once again today, mildly improving eye contact. He claims that he is doing a better and states that medications have been helping his mood and anxiety aswell. claims that he is looking forward to going to rehab tomorrow in the morning. states that he is enjoying the recovery groups the most. claims that he is going to most of the groups on the unit. States that he slept better about 6 hours last night. At this time is denying any suicidal or homicidal ideations intent or plan. Denying any auditory or visual hallucinations. Mental status examination: General Appearance: Patient appears to be thin, shaved head, blading, stated age is alert, directable, and attempts to cooperate. improving eye contact. improving hygiene and grooming. Behavior: Patient is seated without any agitated behavior. more cooperative today Speech: Patient's speech is fluent and nonpressured. soft tone of voice, improving mildly Mood/Affect: Patient reports their mood is improving mildly, affect is congruent and constricted, improving Suicidality/Homicidality: Patient denies having any homicidal ideation intent or plan. Denies any suicidal ideations intent or plan Perceptions: Patient denies any visual hallucinations and denies any auditory hallucinations Though content/process: There is no evidence of any delusional thought content and thought process is linear and goal-directed. Fairly concrete Memory and concentration: AOX3, grossly intact for the purposes of this session Judgment and insight: Improving mildly IMPRESSIONS: Major depressive disorder with psychotic features cocaine abuse cannabis use disorder nicotine dependence PLAN: -Patient is admitted under voluntary status to MHU for stabilization of psychiatric symptoms and safety. Patient has signed adult voluntary form and medication consent and is placed in patient's chart. -Medications : continue with zoloft 100 mg daily for mood/anxiety, continue with seroquel 50 mg qhs for sleep/psychosis. melatonin 10 mg qhs for sleep -Ativan and Haldol PRN for agitation/aggression -NRT - nicotine patch -SW on board for discharge planning. Encourage patient to participate in groups to work on coping skills. Patient has an intake appointment at [facility] on tomorrow morning. Due to patient being homeless and high risk of relapse, will await direct transfer from the hospital to rehab. d/c tomorrow morning. medications sent to pharmacy and will be ready later on today
[2022-12-26] MEDS: QUEtiapine 50 MG TAB PO SCH (22:27)
[2022-12-26] MEDS: MELATONIN 5 MG TABLET PO SCH (22:27)
[2022-12-27 06:58] VITALS: BP 120/72; PULSE 72; TEMP 97.1
[2022-12-27] MEDS: NICOTINE 14MG/24HR PATCH TRANSDERM SCH (08:00)
[2022-12-27] MEDS: SERTRALINE 100 MG TAB PO SCH (08:00)
--- NOTE | 2022-12-27 11:10 | P.DS ---
Providers Date of admission: 12/17/22 21:36 Expected date of discharge: 12/27/22 Attending physician: Miguel Ellsworth MD Consults: 12/17/22 21:40 Consult Physician Routine Consulting Provider: [facility] Consult Reason/Comments: H&P and medical Do you want consulting provider notified?: Yes Primary care physician: Stated None - Discharge Diagnosis(es) (1) Major depressive disorder with psychotic features Status: Acute Priority: High (2) Cocaine abuse Status: Acute Priority: High (3) Cannabis use disorder Status: Acute Priority: Medium (4) Nicotine dependence Status: Acute Priority: Low Hospital Course: Admission HPI: Admission note was completed by copywriter "Patient is a 52 yo male, currently is renting a room, is single, has no kids. works at a factory. Patient presented to the hospital on 12/16 for depression and suicidal ideations. patient apparently was endorsing a plan to cut himself. his uds was positive for opiates, cocaine, thc. patient was seen today and agreeable to speak in the office. he was admitted last night voluntarily to mhu. patient had a depressed affet, poor eye conact, spoke softly. he states that he has been feeling overwhelmed, depressed "about life". 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 states that he is unsure about his job at this time whether or not they are going to let him go. he endorsed anxiety, states that he is still having SI, no current plan. claims that he has been using a significant amount of crack/cocaine lately, claims his sleep is poor around 4-5 hrs. appetite is on/off. denies any HI. he states that he is hearing voices "sound slike a crowd of people but I dont know what theyre saying". he denies any visual hallucinations. Patient denies any flight of ideas racing thoughts and increased in goal directed behavior. Patient admits to using crack cocaine, cannabis lately and also cigaettes daily." Hospital course: Upon admission to the unit patient was directable and agreeable to commence treatment and signed adult voluntary form. Patient was initially fairly isolative however time in treatment he eventually got along well with other patients on the unit and followed unit protocol. Patient was compliant with the medications and denied any side effects throughout hospital course. Patient was started on Zoloft increased her dose to 100 mg daily for mood/anxiety, Seroquel 50 mg daily at bedtime for sleep/psychosis, melatonin 10 mg daily at bedtime for sleep.. Patient spoke of his stressors and engaged in therapy both group and individual. Patient was also seen by medical team for history and physical exam. Throughout the course of the hospitalization patient gradually improved with regards to mood, anxiety, hallucinations, sleep and returned back to their baseline level of functioning. On the day of discharge according to nurses report, patient denied any suicidal or homicidal ideations intent or plan denied any auditory or visual hallucinations. Patient endorsed wanting to live for his health and future. The patient denied any access to guns or weapons. Patient denied any paranoia and did not endorse any delusions. Patient does have a significant history of substance abuse and was counseled on abstaining from all substances including alcohol and marijuana. Patient contacted access line and received an intake date at [facility] for inpatient rehab on 12/27 and was transported there directly upon discharge this morning. Patient was also counseled on the medications and need for regular compliance and was encouraged to follow-up with their outpatient appointment for mental health and also for primary care. Mental status exam: patient was seen yesterday by copywriter and this morning early prior to discharge by nurse Nery Ta. please refer to her note for MS exam. Impression: Major depressive disorder with psychotic features Cocaine abuse Cannabis use disorder Nicotine dependence Plan: -Patient was discharged early this am and stabilized psychiatrically and is not currently an imminent threat to himself and/or others. Patient will remain at chronically elevated risk for harm to self and/or others due to his impulsivity and polysubstance abuse. -Continue medications: Zoloft 100 mg daily for mood/anxiety, Seroquel 50 mg daily at bedtime for sleep/psychosis, melatonin 10 mg daily at bedtime for sleep. -Patient was counseled on the need for medication compliance and appropriate follow-up at mental health and also primary care for medical issues. Patient verbalized understanding and agreed. -Social work to arrange for and conduct family meeting to ensure safety upon discharge and answer any questions/concerns. Social work also to arrange for patients follow up appointments with [facility] for psychiatric care along with follow up with primary care provider. -Patient counseled on abstaining from recreational drugs and marijuana and alcohol. Was informed/educated on the adverse effects on their physical and mental health. Patient verbally agreed and understood. Patient will be discharged today early this morning directly to rehab at [facility]. -Patient was instructed to return to the hospital or seek immediate medical care if their psychiatric or medical symptoms do worsen or reoccur. Allergies Allergy/AdvReac Type Severity Reaction Status Date / Time No Known Allergies Allergy Verified 12/16/22 17:05 Laboratory Results WBC 7.5 k/uL (3.8-10.6) 12/16/22 18:51 RBC 5.16 m/uL (4.30-5.90) 12/16/22 18:51 Hgb 15.9 gm/dL (13.0-17.5) 12/16/22 18:51 Hct 48.2 % (39.0-53.0) 12/16/22 18:51 MCV 93.5 fL (80.0-100.0) 12/16/22 18:51 MCH 30.8 pg (25.0-35.0) 12/16/22 18:51 MCHC 32.9 g/dL (31.0-37.0) 12/16/22 18:51 RDW 13.5 % (11.5-15.5) 12/16/22 18:51 Plt Count 269 k/uL (150-450) 12/16/22 18:51 MPV 7.8 12/16/22 18:51 Sodium 138 mmol/L (137-145) 12/16/22 18:51 Potassium 4.6 mmol/L (3.5-5.1) 12/16/22 18:51 Chloride 105 mmol/L (98-107) 12/16/22 18:51 Carbon Dioxide 26 mmol/L (22-30) 12/16/22 18:51 Anion Gap 7 mmol/L 12/16/22 18:51 BUN 17 mg/dL (9-20) 12/16/22 18:51 Creatinine 0.87 mg/dL (0.66-1.25) 12/16/22 18:51 Est GFR (CKD-EPI)AfAm >90 (>60 ml/min/1.73 sqM) 12/16/22 18:51 Est GFR (CKD-EPI)NonAf >90 (>60 ml/min/1.73 sqM) 12/16/22 18:51 Glucose 91 mg/dL (74-99) 12/16/22 18:51 Calcium 9.2 mg/dL (8.4-10.2) 12/16/22 18:51 Total Bilirubin 0.4 mg/dL (0.2-1.3) 12/16/22 18:51 AST 21 U/L (17-59) 12/16/22 18:51 ALT 24 U/L (4-49) 12/16/22 18:51 Alkaline Phosphatase 67 U/L (38-126) 12/16/22 18:51 Total Protein 6.4 g/dL (6.3-8.2) 12/16/22 18:51 Albumin 3.5 g/dL (3.5-5.0) 12/16/22 18:51 Urine Color Yellow 12/16/22 16:24 Urine Appearance Clear (Clear) 12/16/22 16:24 Urine pH 7.0 (5.0-8.0) 12/16/22 16:24 Ur Specific [place] 1.035 (1.001-1.035) 12/16/22 16:24 Urine Protein Trace (Negative) H 12/16/22 16:24 Urine Glucose (UA) Negative (Negative) 12/16/22 16:24 Urine Ketones Negative (Negative) 12/16/22 16:24 Urine Blood Negative (Negative) 12/16/22 16:24 Urine Nitrite Negative (Negative) 12/16/22 16:24 Urine Bilirubin Negative (Negative) 12/16/22 16:24 Urine Urobilinogen 2.0 mg/dL (<2.0) 12/16/22 16:24 Ur Leukocyte Esterase Negative (Negative) 12/16/22 16:24 Urine Opiates Screen Detected (NotDetected) H 12/16/22 13:57 Ur Oxycodone Screen Not Detected (NotDetected) 12/16/22 13:57 Urine Methadone Screen Not Detected (NotDetected) 12/16/22 13:57 Ur Propoxyphene Screen Not Detected (NotDetected) 12/16/22 13:57 Ur Barbiturates Screen Not Detected (NotDetected) 12/16/22 13:57 U Tricyclic Antidepress Not Detected (NotDetected) 12/16/22 13:57 Ur Phencyclidine Scrn Not Detected (NotDetected) 12/16/22 13:57 Ur Amphetamines Screen Not Detected (NotDetected) 12/16/22 13:57 U Methamphetamines Scrn Not Detected (NotDetected) 12/16/22 13:57 U Benzodiazepines Scrn Not Detected (NotDetected) 12/16/22 13:57 Urine Cocaine Screen Detected (NotDetected) H 12/16/22 13:57 U Marijuana (THC) Screen Detected (NotDetected) H 12/16/22 13:57 Coronavirus (PCR) Not Detected (Not Detectd) 12/16/22 19:48 Vital Signs Temp 97.1 F L 12/27/22 03:55 Pulse 72 12/27/22 03:55 Resp 16 12/27/22 03:55 BP 120/72 12/27/22 03:55 Pulse Ox 97 12/27/22 03:55 FiO2 Patient Condition at Discharge: Stable Plan - Discharge Summary Discharge Rx Participant: Yes New Discharge Prescriptions: New Nicotine 14Mg/24Hr Patch [Habitrol] 1 patch TRANSDERM DAILY 30 Days #30 patch Ibuprofen [Motrin] 600 mg PO Q6HR PRN tab PRN Reason: Moderate Pain (Scale 4 To 6) QUEtiapine [SEROquel] 50 mg PO HS 30 Days #30 tab Acetaminophen Tab [Tylenol] 650 mg PO Q4HR PRN tab PRN Reason: Mild Pain (Scale 1 To 3) Sertraline [Zoloft] 100 mg PO DAILY 30 Days #30 tab Melatonin 10 mg PO HS 30 Days #60 tab Discharge Medication List Acetaminophen Tab [Tylenol] 650 mg PO Q4HR PRN tab 12/26/22 [Rx] Ibuprofen [Motrin] 600 mg PO Q6HR PRN tab 12/26/22 [Rx] Melatonin 10 mg PO HS 30 Days #60 tab 12/26/22 [Rx] Nicotine 14Mg/24Hr Patch [Habitrol] 1 patch TRANSDERM DAILY 30 Days #30 patch 12/26/22 [Rx] QUEtiapine [SEROquel] 50 mg PO HS 30 Days #30 tab 12/26/22 [Rx] Sertraline [Zoloft] 100 mg PO DAILY 30 Days #30 tab 12/26/22 [Rx] Follow up Appointment(s)/Referral(s): [facility] [Outside] - 12/27/22 9:30 am (Intake) [facility] - 1 Week Patient Instructions/Handouts: How to Stop Smoking (DC), Depression (DC) Activity/Diet/Wound Care/Special Instructions: Avoid the use of street drugs and alcohol. Take all medications as prescribed. When you are in need of refills on your medications, please contact your medical provider and/or outpatient psychiatrist/provider to have this done. Please go to your scheduled outpatient appointment for aftercare treatment. If symptoms return or become worse, call the crisis line at and/or go to the nearest emergency room for evaluation. National Suicide Hotline 218. Discharge Disposition: OTHER INSTITUTION NOT DEFINED
== END 2022-12-27 08:39 | disposition other institution (70) | DRG 751 ==
LOC: EC 10:17 → 3MHU 12-17 21:36
PROVIDERS: ADMIT Psychiatry & Neurology Psychiatry; ATTEND Psychiatry & Neurology Psychiatry
DX: F32.3 Major depressive disorder, single episode, severe with psychotic features (principal); F43.21 Adjustment disorder with depressed mood; F51.04 Psychophysiologic insomnia; H54.40 Blindness, one eye, unspecified eye; F17.210 Nicotine dependence, cigarettes, uncomplicated; R45.851 Suicidal ideations; Z79.899 Other long term (current) drug therapy; Z20.822 Contact with and (suspected) exposure to COVID-19; F10.11 Alcohol abuse, in remission; F14.10 Cocaine abuse, uncomplicated; F12.10 Cannabis abuse, uncomplicated; Z71.51 Drug abuse counseling and surveillance of drug abuser; Z71.89 Other specified counseling
CPT/HCPCS: 36415; 80053; 80306; 81003; 82075; 85027; 87635; 99285